=== PATIENT | male | born 1940 | race Caucasian/White ===

== ENCOUNTER → 2017-07-21 | Outpatient (CLI) | payer OTHER | END | disposition home or self-care (01) | LOC: CFH 14:28 | PROVIDERS: ATTEND Internal Medicine Cardiovascular Disease | DX: I50.9 Heart failure, unspecified (principal); E78.5 Hyperlipidemia, unspecified; Z86.73 Personal history of transient ischemic attack (TIA), and cerebral infarction without residual deficits | CPT/HCPCS: 93306 ==

== ENCOUNTER → 2019-06-27 | Outpatient (CLI) | payer OTHER ==
[~2019-06-27] MED LIST: ACET325T26 PO; ATOR20TA37 PO; CALC1CAP10 PO; CLOP75TA PO; CYAN100028 PO; CYCL-259 PO; FLUO20TA25 PO; KETO15CR17 TP; METO25TA35 PO; MICO10PO TP; MONT10TA9 PO; MULT-658 PO; OMEP-110 PO; POLY17PO5 PO; SALI44.3 PO; TAMS-11 PO
== END | disposition home or self-care (01) ==
LOC: PETCFH 13:45
PROVIDERS: ATTEND Internal Medicine Hematology & Oncology
DX: C34.30 Malignant neoplasm of lower lobe, unspecified bronchus or lung (principal)
CPT/HCPCS: 78815; A9552

== ENCOUNTER → 2019-12-13 | Outpatient (CLI) | payer OTHER ==
[~2019-12-13] MED LIST changes: +MONT10TA11 PO; -MONT10TA9 PO
== END | disposition home or self-care (01) ==
LOC: PETCFH 12:24
PROVIDERS: ATTEND Internal Medicine
DX: C34.11 Malignant neoplasm of upper lobe, right bronchus or lung (principal); K57.30 Diverticulosis of large intestine without perforation or abscess without bleeding; I70.0 Atherosclerosis of aorta; R91.1 Solitary pulmonary nodule; I51.7 Cardiomegaly
CPT/HCPCS: 78815; A9552

== ENCOUNTER → 2020-07-03 | Outpatient (CLI) | payer OTHER ==
[~2020-07-03] MED LIST changes: -MONT10TA11 PO; +MONT10TA96 PO
== END | disposition home or self-care (01) ==
LOC: PETCFH 12:57
PROVIDERS: ATTEND Specialist
DX: R91.1 Solitary pulmonary nodule (principal); D02.21 Carcinoma in situ of right bronchus and lung
CPT/HCPCS: 78815; A9552

== ENCOUNTER 2021-02-27 12:32 | Outpatient (CLI) | payer OTHER ==
[~2021-02-27 12:32] MED LIST changes: -CYCL-259 PO; +CYCL10TA2 PO; +MONT10TA17 PO; -MONT10TA96 PO
== END 2021-02-27 23:59 | disposition home or self-care (01) ==
LOC: PETCFH 12:32
PROVIDERS: ATTEND Internal Medicine Hematology & Oncology
DX: C34.31 Malignant neoplasm of lower lobe, right bronchus or lung (principal); J90 Pleural effusion, not elsewhere classified; J98.11 Atelectasis; I25.10 Atherosclerotic heart disease of native coronary artery without angina pectoris; R91.1 Solitary pulmonary nodule
CPT/HCPCS: 78815; A9552